=== PATIENT | male | born 1960 ===

== ENCOUNTER 2024-11-10 17:00 | Emergency (ER) | payer OTHER ==
[2024-11-10] MEDS ORDERED: Boostrix 0.5 ML (Tdap) VIAL (>/=7 yrs of age) ONE (18:27)
== END 2024-11-10 18:41 | disposition home or self-care (01) ==
LOC: MADERS 17:00
DX: S61.210A Laceration without foreign body of right index finger without damage to nail, initial encounter (principal); Z23 Encounter for immunization; W26.8XXA Contact with other sharp object(s), not elsewhere classified, initial encounter
CPT/HCPCS: 12001; 90471; 90715